=== PATIENT | female | born 1950 | race Caucasian/White ===

== ENCOUNTER 2018-06-29 13:42 | Inpatient (IN) | payer MEDICARE, OTHER ==
[~2018-06-29] VITALS: Ht 162.6 cm; Wt 68.2 kg
[2018-06-29] MEDS ORDERED: OMEP40CA37 PO (14:26)
[2018-06-29] MEDS ORDERED: ENAL10TA78 PO (14:26)
[2018-06-29] MEDS ORDERED: [UNRECOGNIZED DRUG - CODE] PO (14:26)
[2018-06-29] MEDS ORDERED: CYA500T PO (14:26)
[2018-06-29] MEDS ORDERED: CARI250T PO (14:26)
[2018-06-29] MEDS ORDERED: MYCOL15CR TOP (14:26)
[2018-06-29] MEDS ORDERED: AMIT-189 PO (14:26)
[2018-06-29] MEDS ORDERED: HYDR-4353 PO (14:26)
[2018-06-29] MEDS ORDERED: ASCO500C15 PO (14:26)
[2018-06-29] MEDS ORDERED: POTA10CA44 PO (14:26)
[2018-06-29] MEDS ORDERED: MELA3TAB PO (14:26)
[2018-06-29] MEDS ORDERED: DOCU-28 PO (14:26)
[2018-06-29] MEDS ORDERED: HYDR25TA4 PO (14:26)
[2018-06-29] MEDS ORDERED: HYDROcodone/acetaminophen 5mg/325mg tablet PO ONE (14:40)
[2018-06-29 14:58] LABS: ALANINE AMINOTRANSFERASE 70 U/L (12-78); ALBUMIN 1.5 G/DL (3.4-5.0); ALBUMIN/GLOBULIN RATIO 0.4 (1.1-1.5); ALKALINE PHOSPHATASE 117 IU/L (46-116); ANION GAP 11 (8-16); ASPARTATE AMINO TRANSFERASE 94 U/L (10-37); BILIRUBIN,TOTAL 1.1 MG/DL (0.1-1.0); BLOOD UREA NITROGEN 8 MG/DL (7-18); CALCIUM 7.3 MG/DL (8.5-10.1); CHLORIDE 107 MMOL/L (99-107); CREATINE KINASE 456 U/L (26-192); GLUCOSE 98 MG/DL (70-104); LIPASE < 50 U/L (73-393); SODIUM 145 MMOL/L (135-145); TOTAL CARBON DIOXIDE 26.9 MMOL/L (24-32); TOTAL PROTEIN 5.2 G/DL (6.4-8.2); eGFR 71 ML/MIN
[2018-06-29 14:59] LABS: POTASSIUM 2.6 MMOL/L (3.5-5.1)
[2018-06-29 15:00] LABS: INR 1.4 INR; PARTIAL THROMBOPLASTIN TIME 25 SECONDS (22-32); PROTHROMBIN TIME 14.1 SECONDS (9.0-12.0)
[2018-06-29] MEDS ORDERED: diatr meglu/diatrizoate 30ml oral sol.-(3 dose) bottle PO SCH (15:15)
[2018-06-29 15:33] LABS: HEMOGLOBIN 12.2 g/dl (12.0-16.0); MEAN PLATELET VOLUME 9.1 FL (7.4-10.4); PLATELET COUNT 193 X10'3 (140-440); RED CELL DISTRIBUTION WIDTH 15.6 % (11.5-14.5); WHITE BLOOD COUNT 4.3 X10'3 (4.5-11.0)
[2018-06-29] MEDS: potassium 10mEq/100ml NS w/LIDOcaine (10mg/bag) IV SCH ×2 (15:42→16:48)
[2018-06-29 15:53] LABS: LACTIC SEPSIS 2.3 MMOL/L (0.4-2.0)
[2018-06-29 16:01] LABS: ANISOCYTOSIS 1+; PLATELET ESTIMATE NORMAL; TARGET CELLS 2+; TOTAL CELLS COUNTED 100
[2018-06-29] MEDS: diatr meglu/diatrizoate 30ml oral sol.-(3 dose) bottle PO SCH ×3 (16:36→19:10)
[2018-06-29] MEDS ORDERED: mag hydrox/Alum hydrox/simeth 30ml oral suspension PO PRN (17:15)
[2018-06-29] MEDS ORDERED: potassium Cl 40MEQ/NS 500ml 500 ML IV PRN (17:15)
[2018-06-29] MEDS ORDERED: magnesium 4gm in 100ml NS 100 ML IV PRN (17:15)
[2018-06-29] MEDS ORDERED: acetaminophen 325mg tablet PO PRN (17:15)
[2018-06-29] MEDS ORDERED: magnesium hydroxide 30ml (MOM) UD suspension PO PRN (17:15)
[2018-06-29] MEDS ORDERED: magnesium Cl slow-release 64mg tablet PO PRN (17:15)
[2018-06-29] MEDS ORDERED: potassium Cl 20 mEq SR tablet PO PRN (17:15)
[2018-06-29] MEDS ORDERED: ringers solution, lacted 1,000 ML IV ONE (17:31)
[2018-06-29] MEDS: normal saline 1000ml 1,000 ML IV SCH (18:04)
[2018-06-29] MEDS ORDERED: iohexol 300mg/ml 100ml inj. ONE (20:10)
[2018-06-29] MEDS: heparin, porcine 5000 units/ml vial SQ SCH (20:14)
[2018-06-29] MEDS: amitryptiline 50mg tablet PO SCH (20:14)
[2018-06-29 22:38] VITALS: BP 156/81
[2018-06-29] MEDS: traMADol 50MG tablet PO PRN (22:54)
[2018-06-29 23:09] LABS: POTASSIUM 2.5 MMOL/L (3.5-5.1)
[2018-06-30] VITALS (12 sets, daily range): BP systolic 114–148; BP diastolic 50–91
[2018-06-30] MEDS: potassium Cl 40MEQ/NS 500ml 500 ML IV PRN ×2 (00:15→04:19)
[2018-06-30 02:15] LABS: URINE AMPHETAMINE SCREEN NEGATIVE (Neg); URINE BARBITUATE SCREEN NEGATIVE (Neg); URINE BENZODIAZEPINES SCREEN NEGATIVE (Neg); URINE CANNABINOID SCREEN NEGATIVE (Neg); URINE COCAINE SCREEN NEGATIVE (Neg); URINE METHADONE SCREEN NEGATIVE (Neg); URINE OPIATE SCREEN POSITIVE (Neg); URINE PHENCYCLIDINE SCREEN NEGATIVE (Neg)
[2018-06-30 02:53] LABS: CLARITY,URINE CLEAR (Clear); COLOR,URINE YELLOW (Yellow); GLUCOSE, URINE NEGATIVE (Neg); KETONES,URINE TRACE mg/dl (Neg); LEUKOCYTE ESTERASE ,URINE NEGATIVE (Neg); NITRITES, URINE NEGATIVE (Neg); OCCULT BLOOD,URINE MODERATE (Neg); PH,URINE 6.5 (4.8-8.0); PROTEIN,URINE NEGATIVE (Neg)
[2018-06-30 02:56] LABS: UA COLLECTION TYPE FOLEY CATH
[2018-06-30 03:00] LABS: BACTERIA,URINE NONE SEEN /HPF (Neg); WBC,URINE 0-4 /HPF (0-4)
[2018-06-30 03:01] LABS: MUCUS STRANDS NONE SEEN /LPF (Neg); SQUAMOUS EPITHELIAL CELL,UR NONE SEEN /LPF (FEW)
[2018-06-30] MEDS: traMADol 50MG tablet PO PRN (07:23)
[2018-06-30] MEDS: HYDROchlorothiazide 25mg tablet PO SCH (07:24)
[2018-06-30] MEDS: pantoprazole 40mg Tablet.DR PO SCH (07:24)
[2018-06-30] MEDS: lisinopril 10 MG tablet PO SCH (07:25)
[2018-06-30] MEDS: amitryptiline 50mg tablet PO SCH ×2 (07:31→20:43)
[2018-06-30] MEDS: PARoxetine 20mg tablet PO SCH (07:32)
[2018-06-30] MEDS: K and/or MAG REPLACEMENT MC SCH (08:00)
[2018-06-30] MEDS ORDERED: pantoprazole 40mg Tablet.DR PO SCH (08:00)
[2018-06-30] MEDS: heparin, porcine 5000 units/ml vial SQ SCH ×2 (08:00→20:43)
[2018-06-30] MEDS ORDERED: non-formulary drug (Enalapril Maleate* (Vasotec*) 1 TAB) PO SCH (08:00)
[2018-06-30] MEDS ORDERED: docusate sod 100mg capsule PO PRN (09:40)
[2018-06-30] MEDS ORDERED: FLO0.1T PO (09:56)
[2018-06-30] MEDS ORDERED: morphine 4 MG/ML inj SYRINge IV PRN ×2 (10:45)
[2018-06-30] MEDS ORDERED: ondansetron/PF 4mg/2ml inj IV PRN (10:45)
[2018-06-30] MEDS ORDERED: labetalol 20mg/4ml (5mg/ml) syringe IV PRN (10:45)
[2018-06-30] MEDS ORDERED: hydrALAZINE 20mg/ml inj. IV PRN (10:45)
[2018-06-30] MEDS ORDERED: ringers solution, lacted 1,000 ML IV SCH (10:45)
[2018-06-30] MEDS ORDERED: fentaNYL/PF 50MCG/1 ML 2ML syringe IV PRN (10:45)
[2018-06-30 11:24] LABS: BASOPHILS % (AUTO) 0.6 % (0-1); EOSINOPHILS % (AUTO) 0.3 % (0-6); HEMATOCRIT 35.4 % (35.0-45.0); HEMOGLOBIN 11.7 g/dl (12.0-16.0); LYMPHOCYTES % (AUTO) 23.1 % (21-51); MEAN CORPUSCULAR HEMOGLOBIN 36.5 PG (27.0-31.0); MEAN CORPUSCULAR HGB CONC 33.2 % (33.0-36.5); MEAN CORPUSCULAR VOLUME 109.9 FL (78-98); MEAN PLATELET VOLUME 9.4 FL (7.4-10.4); MONOCYTES # (AUTO) 0.3 X10'3 (0-0.9); MONOCYTES % (AUTO) 6.6 % (2-12); NEUTROPHILS % (AUTO) 69.4 % (42-75); PLATELET COUNT 175 X10'3 (140-440); RED BLOOD COUNT 3.22 X10'6 (4.20-5.60); RED CELL DISTRIBUTION WIDTH 15.7 % (11.5-14.5); WHITE BLOOD COUNT 4.4 X10'3 (4.5-11.0)
[2018-06-30 11:40] LABS: ALANINE AMINOTRANSFERASE 81 U/L (12-78); ALBUMIN 1.6 G/DL (3.4-5.0); ALBUMIN/GLOBULIN RATIO 0.4 (1.1-1.5); ALKALINE PHOSPHATASE 124 IU/L (46-116); ANION GAP 14 (8-16); ASPARTATE AMINO TRANSFERASE 97 U/L (10-37); BILIRUBIN,TOTAL 1.1 MG/DL (0.1-1.0); BLOOD UREA NITROGEN 8 MG/DL (7-18); BUN/CREATININE RATIO 11.3 (6.6-38.0); CALCIUM 7.4 MG/DL (8.5-10.1); CHLORIDE 109 MMOL/L (99-107); CREATININE 0.71 MG/DL (0.40-0.90); GLUCOSE 91 MG/DL (70-104); MAGNESIUM 1.6 MG/DL (1.5-2.4); POTASSIUM 3.5 MMOL/L (3.5-5.1); SODIUM 147 MMOL/L (135-145); TOTAL CARBON DIOXIDE 24.2 MMOL/L (24-32); TOTAL PROTEIN 5.4 G/DL (6.4-8.2); eGFR 82 ML/MIN
[2018-06-30] MEDS ORDERED: etomidate 2mg/ml inj. ONE ×2 (12:02→12:07)
[2018-06-30] MEDS ORDERED: labetalol 20mg/4ml (5mg/ml) syringe IV ONE (12:02)
[2018-06-30] MEDS ORDERED: sevoflurane 250ml liquid IH ONE (12:02)
[2018-06-30] MEDS ORDERED: fentaNYL/PF 50MCG/1 ML 2ML syringe ONE ×2 (12:04→13:06)
[2018-06-30] MEDS ORDERED: midazolam 2 mg/2 ml injection ONE (12:05)
[2018-06-30] MEDS ORDERED: succinylcholine 20mg/ml inj IV ONE (12:07)
[2018-06-30] MEDS ORDERED: ceFOXitin 1000 MG inj ONE ×2 (12:22)
[2018-06-30] MEDS ORDERED: ondansetron/PF 4mg/2ml inj ONE (12:25)
[2018-06-30] MEDS ORDERED: dexamethasone sod phosphate 4mg/ml inj. ONE (12:25)
[2018-06-30] MEDS ORDERED: rocuronium 10mg/ml inj IV ONE (12:27)
[2018-06-30] MEDS ORDERED: glycopyrrolate 0.2mg/ml inj ONE (13:32)
[2018-06-30] MEDS ORDERED: BUPIVAcaine/PF 7.5mg/ml (0.75%) 10ml vial ONE (13:32)
[2018-06-30] MEDS ORDERED: neostigmine methylsulfate 1 MG/ML 10ml vial ONE (13:33)
[2018-06-30] MEDS: fentaNYL/PF 50MCG/1 ML 2ML syringe IV PRN ×2 (14:18→14:38)
[2018-06-30] MEDS: normal saline 1000ml 1,000 ML IV SCH (15:56)
[2018-06-30] MEDS: Melatonin 3mg tablet PO SCH (20:43)
[2018-07-01] VITALS (7 sets, daily range): BP systolic 94–134; BP diastolic 51–69
[2018-07-01 06:54] LABS: BASOPHILS % (AUTO) 0.5 % (0-1); EOSINOPHILS % (AUTO) 0 % (0-6); HEMOGLOBIN 9.1 g/dl (12.0-16.0); LYMPHOCYTES # (AUTO) 1.3 X10'3 (1.1-4.8); LYMPHOCYTES % (AUTO) 20.9 % (21-51); MEAN CORPUSCULAR HEMOGLOBIN 36.9 PG (27.0-31.0); MEAN CORPUSCULAR HGB CONC 33.7 % (33.0-36.5); MEAN CORPUSCULAR VOLUME 109.5 FL (78-98); MONOCYTES # (AUTO) 0.5 X10'3 (0-0.9); MONOCYTES % (AUTO) 7.7 % (2-12); NEUTROPHILS # (AUTO) 4.4 X10'3 (1.8-7.7); NEUTROPHILS % (AUTO) 70.9 % (42-75); PLATELET COUNT 156 X10'3 (140-440); RED BLOOD COUNT 2.46 X10'6 (4.20-5.60); RED CELL DISTRIBUTION WIDTH 16.1 % (11.5-14.5); WHITE BLOOD COUNT 6.2 X10'3 (4.5-11.0)
[2018-07-01 07:22] LABS: ALANINE AMINOTRANSFERASE 59 U/L (12-78); ALBUMIN 1.1 G/DL (3.4-5.0); ALBUMIN/GLOBULIN RATIO 0.4 (1.1-1.5); ALKALINE PHOSPHATASE 82 IU/L (46-116); ANION GAP 8 (8-16); ASPARTATE AMINO TRANSFERASE 58 U/L (10-37); BILIRUBIN,TOTAL 0.7 MG/DL (0.1-1.0); BLOOD UREA NITROGEN 7 MG/DL (7-18); CALCIUM 6.8 MG/DL (8.5-10.1); CHLORIDE 111 MMOL/L (99-107); GLUCOSE 138 MG/DL (70-104); MAGNESIUM 1.6 MG/DL (1.5-2.4); POTASSIUM 3.6 MMOL/L (3.5-5.1); SODIUM 144 MMOL/L (135-145); TOTAL CARBON DIOXIDE 25.3 MMOL/L (24-32); TOTAL PROTEIN 4.2 G/DL (6.4-8.2); eGFR 83 ML/MIN
[2018-07-01] MEDS: amitryptiline 50mg tablet PO SCH ×2 (08:00→20:00)
[2018-07-01] MEDS: K and/or MAG REPLACEMENT MC SCH (08:00)
[2018-07-01] MEDS: PARoxetine 20mg tablet PO SCH (08:00)
[2018-07-01] MEDS: traMADol 50MG tablet PO PRN ×2 (08:20→19:48)
[2018-07-01] MEDS: pantoprazole 40mg Tablet.DR PO SCH (08:21)
[2018-07-01] MEDS: lisinopril 10 MG tablet PO SCH (08:21)
[2018-07-01] MEDS: HYDROchlorothiazide 25mg tablet PO SCH (08:21)
[2018-07-01] MEDS: heparin, porcine 5000 units/ml vial SQ SCH ×2 (08:22→20:45)
[2018-07-01] MEDS: normal saline 1000ml 1,000 ML IV SCH (11:51)
[2018-07-01] MEDS: Melatonin 3mg tablet PO SCH (20:45)
[2018-07-02] MEDS: traMADol 50MG tablet PO PRN ×3 (03:13→20:43)
[2018-07-02] MEDS: normal saline 1000ml 1,000 ML IV SCH ×2 (05:25→06:28)
[2018-07-02 06:00] VITALS: BP 129/69
[2018-07-02 07:04] LABS: BASOPHILS # (AUTO) 0.1 X10'3 (0-0.2); BASOPHILS % (AUTO) 1.4 % (0-1); EOSINOPHILS % (AUTO) 0.3 % (0-6); HEMATOCRIT 27.5 % (35.0-45.0); LYMPHOCYTES # (AUTO) 1.6 X10'3 (1.1-4.8); LYMPHOCYTES % (AUTO) 26.7 % (21-51); MEAN CORPUSCULAR HEMOGLOBIN 36.3 PG (27.0-31.0); MEAN CORPUSCULAR HGB CONC 32.9 % (33.0-36.5); MEAN CORPUSCULAR VOLUME 110.4 FL (78-98); MEAN PLATELET VOLUME 9.9 FL (7.4-10.4); MONOCYTES # (AUTO) 0.6 X10'3 (0-0.9); MONOCYTES % (AUTO) 10.1 % (2-12); NEUTROPHILS # (AUTO) 3.7 X10'3 (1.8-7.7); NEUTROPHILS % (AUTO) 61.5 % (42-75); PLATELET COUNT 127 X10'3 (140-440); RED BLOOD COUNT 2.49 X10'6 (4.20-5.60); RED CELL DISTRIBUTION WIDTH 16.2 % (11.5-14.5)
[2018-07-02] MEDS: PARoxetine 20mg tablet PO SCH (07:23)
[2018-07-02] MEDS: amitryptiline 50mg tablet PO SCH ×2 (07:23→20:00)
[2018-07-02] MEDS: lisinopril 10 MG tablet PO SCH (07:24)
[2018-07-02] MEDS: pantoprazole 40mg Tablet.DR PO SCH (07:24)
[2018-07-02] MEDS: HYDROchlorothiazide 25mg tablet PO SCH (07:24)
[2018-07-02] MEDS: heparin, porcine 5000 units/ml vial SQ SCH ×2 (07:26→20:44)
[2018-07-02 07:28] LABS: ALANINE AMINOTRANSFERASE 64 U/L (12-78); ALBUMIN 1.2 G/DL (3.4-5.0); ALBUMIN/GLOBULIN RATIO 0.3 (1.1-1.5); ALKALINE PHOSPHATASE 89 IU/L (46-116); ANION GAP 9 (8-16); ASPARTATE AMINO TRANSFERASE 81 U/L (10-37); BILIRUBIN,TOTAL 0.8 MG/DL (0.1-1.0); BLOOD UREA NITROGEN 10 MG/DL (7-18); BUN/CREATININE RATIO 13.2 (6.6-38.0); CALCIUM 7.3 MG/DL (8.5-10.1); CHLORIDE 110 MMOL/L (99-107); CREATININE 0.76 MG/DL (0.40-0.90); GLUCOSE 108 MG/DL (70-104); MAGNESIUM 1.8 MG/DL (1.5-2.4); SODIUM 145 MMOL/L (135-145); TOTAL CARBON DIOXIDE 25.8 MMOL/L (24-32); TOTAL PROTEIN 4.8 G/DL (6.4-8.2); eGFR 75 ML/MIN
[2018-07-02] MEDS: potassium Cl 20 mEq SR tablet PO PRN ×3 (07:47→16:42)
[2018-07-02 08:00] VITALS: BP_SYST 101; BP_SYST 102; BP_SYST 133; BP_DIAS 56; BP_DIAS 67; BP_DIAS 72
[2018-07-02] MEDS: K and/or MAG REPLACEMENT MC SCH (08:00)
[2018-07-02 10:00] VITALS: BP 101/72
[2018-07-02 10:59] VITALS: BP 101/72
[2018-07-02 18:17] VITALS: BP 151/71
[2018-07-02] MEDS: Melatonin 3mg tablet PO SCH (20:43)
[2018-07-02 21:56] VITALS: BP_SYST 124; BP_SYST 144; BP_SYST 157; BP_DIAS 70; BP_DIAS 77; BP_DIAS 82
[2018-07-03 00:08] VITALS: BP 141/83
[2018-07-03 05:20] LABS: BASOPHILS % (AUTO) 0.3 % (0-1); EOSINOPHILS % (AUTO) 0.8 % (0-6); HEMATOCRIT 24.8 % (35.0-45.0); HEMOGLOBIN 8.3 g/dl (12.0-16.0); LYMPHOCYTES # (AUTO) 1.4 X10'3 (1.1-4.8); LYMPHOCYTES % (AUTO) 27.8 % (21-51); MEAN CORPUSCULAR HEMOGLOBIN 36.8 PG (27.0-31.0); MEAN CORPUSCULAR HGB CONC 33.3 % (33.0-36.5); MEAN CORPUSCULAR VOLUME 110.4 FL (78-98); MEAN PLATELET VOLUME 9.2 FL (7.4-10.4); MONOCYTES # (AUTO) 0.4 X10'3 (0-0.9); MONOCYTES % (AUTO) 7.6 % (2-12); NEUTROPHILS # (AUTO) 3.3 X10'3 (1.8-7.7); NEUTROPHILS % (AUTO) 63.5 % (42-75); PLATELET COUNT 169 X10'3 (140-440); RED BLOOD COUNT 2.25 X10'6 (4.20-5.60); RED CELL DISTRIBUTION WIDTH 16.2 % (11.5-14.5); WHITE BLOOD COUNT 5.2 X10'3 (4.5-11.0)
[2018-07-03 05:39] LABS: ALANINE AMINOTRANSFERASE 78 U/L (12-78); ALBUMIN 1.1 G/DL (3.4-5.0); ALBUMIN/GLOBULIN RATIO 0.3 (1.1-1.5); ALKALINE PHOSPHATASE 88 IU/L (46-116); ANION GAP 4 (8-16); ASPARTATE AMINO TRANSFERASE 119 U/L (10-37); BLOOD UREA NITROGEN 10 MG/DL (7-18); BUN/CREATININE RATIO 13.3 (6.6-38.0); CALCIUM 7.2 MG/DL (8.5-10.1); CHLORIDE 110 MMOL/L (99-107); CREATININE 0.75 MG/DL (0.40-0.90); GLUCOSE 97 MG/DL (70-104); MAGNESIUM 1.7 MG/DL (1.5-2.4); POTASSIUM 3.8 MMOL/L (3.5-5.1); SODIUM 143 MMOL/L (135-145); TOTAL PROTEIN 4.6 G/DL (6.4-8.2); eGFR 77 ML/MIN
[2018-07-03 07:00] VITALS: BP 150/82
[2018-07-03 08:00] VITALS: BP_SYST 130; BP_SYST 146; BP_SYST 148; BP_DIAS 68; BP_DIAS 74; BP_DIAS 75
[2018-07-03] MEDS: K and/or MAG REPLACEMENT MC SCH (08:00)
[2018-07-03] MEDS: normal saline 1000ml 1,000 ML IV SCH (09:07)
[2018-07-03] MEDS: amitryptiline 50mg tablet PO SCH ×2 (09:10→20:00)
[2018-07-03] MEDS: PARoxetine 20mg tablet PO SCH (09:11)
[2018-07-03] MEDS: HYDROchlorothiazide 25mg tablet PO SCH (09:11)
[2018-07-03] MEDS: heparin, porcine 5000 units/ml vial SQ SCH ×2 (09:12→20:24)
[2018-07-03] MEDS: lisinopril 10 MG tablet PO SCH (09:12)
[2018-07-03] MEDS: pantoprazole 40mg Tablet.DR PO SCH (09:14)
[2018-07-03 11:00] VITALS: BP 148/70
[2018-07-03] MEDS: traMADol 50MG tablet PO PRN (17:43)
[2018-07-03 20:00] VITALS: BP_SYST 131; BP_SYST 144; BP_SYST 167; BP_DIAS 101; BP_DIAS 70; BP_DIAS 89
[2018-07-03] MEDS: Melatonin 3mg tablet PO SCH (20:24)
[2018-07-04] VITALS: BP 127/69
[2018-07-04] MEDS: normal saline 1000ml 1,000 ML IV SCH (03:15)
[2018-07-04 04:32] LABS: BASOPHILS % (AUTO) 0.3 % (0-1); EOSINOPHILS # (AUTO) 0.1 X10'3 (0-0.9); EOSINOPHILS % (AUTO) 1.4 % (0-6); HEMATOCRIT 24.6 % (35.0-45.0); HEMOGLOBIN 8.1 g/dl (12.0-16.0); LYMPHOCYTES # (AUTO) 1.6 X10'3 (1.1-4.8); LYMPHOCYTES % (AUTO) 31.5 % (21-51); MEAN CORPUSCULAR HGB CONC 32.9 % (33.0-36.5); MEAN CORPUSCULAR VOLUME 109.4 FL (78-98); MEAN PLATELET VOLUME 8.9 FL (7.4-10.4); MONOCYTES # (AUTO) 0.5 X10'3 (0-0.9); MONOCYTES % (AUTO) 9.6 % (2-12); NEUTROPHILS # (AUTO) 2.9 X10'3 (1.8-7.7); NEUTROPHILS % (AUTO) 57.2 % (42-75); PLATELET COUNT 170 X10'3 (140-440); RED BLOOD COUNT 2.25 X10'6 (4.20-5.60); RED CELL DISTRIBUTION WIDTH 16.2 % (11.5-14.5)
[2018-07-04 04:52] LABS: ALANINE AMINOTRANSFERASE 95 U/L (12-78); ALBUMIN 1.1 G/DL (3.4-5.0); ALBUMIN/GLOBULIN RATIO 0.3 (1.1-1.5); ALKALINE PHOSPHATASE 96 IU/L (46-116); ANION GAP 6 (8-16); ASPARTATE AMINO TRANSFERASE 130 U/L (10-37); BLOOD UREA NITROGEN 11 MG/DL (7-18); CALCIUM 6.9 MG/DL (8.5-10.1); CHLORIDE 108 MMOL/L (99-107); CREATININE 0.58 MG/DL (0.40-0.90); GLUCOSE 86 MG/DL (70-104); MAGNESIUM 1.7 MG/DL (1.5-2.4); POTASSIUM 3.4 MMOL/L (3.5-5.1); SODIUM 142 MMOL/L (135-145); TOTAL PROTEIN 4.5 G/DL (6.4-8.2); eGFR > 90 ML/MIN
[2018-07-04] MEDS: amitryptiline 50mg tablet PO SCH (07:46)
[2018-07-04] MEDS: PARoxetine 20mg tablet PO SCH (07:46)
[2018-07-04] MEDS: traMADol 50MG tablet PO PRN ×2 (07:51→16:00)
[2018-07-04] MEDS: HYDROchlorothiazide 25mg tablet PO SCH (07:51)
[2018-07-04] MEDS: lisinopril 10 MG tablet PO SCH (07:52)
[2018-07-04] MEDS: pantoprazole 40mg Tablet.DR PO SCH (07:52)
[2018-07-04] MEDS: heparin, porcine 5000 units/ml vial SQ SCH ×2 (07:53→21:12)
[2018-07-04] MEDS: K and/or MAG REPLACEMENT MC SCH (07:55)
[2018-07-04 08:00] VITALS: BP 141/78
[2018-07-04 12:00] VITALS: BP 161/83
[2018-07-04 12:21] VITALS: BP_SYST 123; BP_SYST 124; BP_SYST 141; BP_DIAS 67; BP_DIAS 72; BP_DIAS 78
[2018-07-04] MEDS ORDERED: potassium Cl 40MEQ/NS 500ml 500 ML IV PRN ×2 (14:05)
[2018-07-04] MEDS ORDERED: magnesium Cl slow-release 64mg tablet PO PRN (14:05)
[2018-07-04] MEDS ORDERED: magnesium 4gm in 100ml NS 100 ML IV PRN (14:05)
[2018-07-04] MEDS ORDERED: potassium Cl 20 mEq SR tablet PO PRN ×2 (14:05)
[2018-07-04] MEDS ORDERED: potassium Cl oral solution 20 MEQ/15 ML PO PRN (14:53)
[2018-07-04] MEDS: potassium Cl oral solution 20 MEQ/15 ML PO PRN ×2 (15:59→21:12)
[2018-07-04 20:00] VITALS: BP_SYST 125; BP_SYST 128; BP_SYST 131; BP_DIAS 59; BP_DIAS 62; BP_DIAS 64
[2018-07-04] MEDS: Melatonin 3mg tablet PO SCH (21:12)
[2018-07-05] VITALS: BP 149/89
[2018-07-05 07:11] VITALS: BP 147/78
[2018-07-05] MEDS: lisinopril 10 MG tablet PO SCH (07:47)
[2018-07-05] MEDS: heparin, porcine 5000 units/ml vial SQ SCH ×2 (07:48→20:18)
[2018-07-05] MEDS: HYDROchlorothiazide 25mg tablet PO SCH (07:48)
[2018-07-05] MEDS: pantoprazole 40mg Tablet.DR PO SCH (07:48)
[2018-07-05] MEDS: K and/or MAG REPLACEMENT MC SCH (08:00)
[2018-07-05] MEDS ORDERED: PEG 3350/Na sulf,bicarb,Cl/KCl oral sol 4 liter bottle PO ONE (09:45)
[2018-07-05 09:52] LABS: MAGNESIUM 1.9 MG/DL (1.5-2.4); POTASSIUM 3.4 MMOL/L (3.5-5.1)
[2018-07-05] MEDS: potassium Cl oral solution 20 MEQ/15 ML PO PRN ×2 (10:54→15:11)
[2018-07-05 11:18] VITALS: BP_SYST 129; BP_SYST 134; BP_SYST 150; BP_DIAS 74; BP_DIAS 76; BP_DIAS 90
[2018-07-05 11:21] VITALS: BP 150/90
[2018-07-05] MEDS: ondansetron/PF 4mg/2ml inj IV PRN (16:05)
[2018-07-05 20:00] VITALS: BP_SYST 128; BP_SYST 132; BP_SYST 139; BP_DIAS 72; BP_DIAS 76; BP_DIAS 78
[2018-07-05] MEDS: Melatonin 3mg tablet PO SCH (20:24)
[2018-07-06] VITALS: BP 140/68
[2018-07-06 05:19] LABS: MAGNESIUM 1.8 MG/DL (1.5-2.4); POTASSIUM 3.3 MMOL/L (3.5-5.1)
[2018-07-06] MEDS: pantoprazole 40mg Tablet.DR PO SCH (07:46)
[2018-07-06] MEDS: lisinopril 10 MG tablet PO SCH (07:46)
[2018-07-06] MEDS: HYDROchlorothiazide 25mg tablet PO SCH (07:46)
[2018-07-06] MEDS: heparin, porcine 5000 units/ml vial SQ SCH (07:47)
[2018-07-06 08:00] VITALS: BP 139/76
[2018-07-06] MEDS: K and/or MAG REPLACEMENT MC SCH (08:00)
[2018-07-06 11:00] VITALS: BP 146/72
[2018-07-06] MEDS: ondansetron/PF 4mg/2ml inj IV PRN (12:03)
== END 2018-07-06 13:30 | DRG 335 ==
LOC: ER 13:42 → ED HOLD 17:13 → ORTHO 4S 22:23 → SUR 3N 07-02 21:10
PROVIDERS: ADMIT Internal Medicine; ATTEND Internal Medicine
PROC: 0DN80ZZ Release Small Intestine, Open Approach (ICD-10-PCS; principal; 2018-06-30 12:02)
PROC: 0FB00ZX Excision of Liver, Open Approach, Diagnostic (ICD-10-PCS; 2018-07-03)
DX: K56.51 Intestinal adhesions [bands], with partial obstruction (principal); E43 Unspecified severe protein-calorie malnutrition; G93.41 Metabolic encephalopathy; D62 Acute posthemorrhagic anemia; J96.11 Chronic respiratory failure with hypoxia; E27.1 Primary adrenocortical insufficiency; E87.6 Hypokalemia; I10 Essential (primary) hypertension; G89.4 Chronic pain syndrome; K59.00 Constipation, unspecified; F32.9 Major depressive disorder, single episode, unspecified; J44.9 Chronic obstructive pulmonary disease, unspecified; K21.9 Gastro-esophageal reflux disease without esophagitis; K76.0 Fatty (change of) liver, not elsewhere classified; Z66 Do not resuscitate; Z90.49 Acquired absence of other specified parts of digestive tract; Z98.84 Bariatric surgery status; Z87.891 Personal history of nicotine dependence
CPT/HCPCS: 36415; 70450; 71045; 72125; 74176; 74177; 80053; 80305; 81001; 82140; 82550; 83605; 83690; 83735; 84132; 84484; 85025; 85610; 85730; 87070; 88307; 88313; 93005; 96365; 97110; 97116; 97161; 97530; 99285; A6255; A7000; G0378; J0330; J0694; J1100; J1644; J2250; J2405; J2710; J3010; J3480; J3490; J7030; J7120; Q9963; Q9967